=== PATIENT | male | born 1980 | race Caucasian/White ===

== ENCOUNTER 2018-09-06 13:41 | Emergency (ER) | payer SELFPAY ==
[~2018-09-06] VITALS: Ht 188 cm; Wt 86.2 kg
[2018-09-06 13:49] VITALS: BP_SYST 127
[2018-09-06 14:25] VITALS: BP_SYST 125
== END 2018-09-06 14:25 ==
LOC: SED 13:41
DX: Z02.89 Encounter for other administrative examinations (principal); R03.0 Elevated blood-pressure reading, without diagnosis of hypertension
CPT/HCPCS: 99283